=== PATIENT | male | born 1995 | race Caucasian/White ===

== ENCOUNTER 2024-12-05 10:11 | Emergency (ER) | payer BC, SELFPAY ==
[2024-12-05 10:15] VITALS: BP 156/109; PULSE 89; TEMP 36.6; O2SAT 98; BMI 23.1
--- OUTSIDE RECORDS SUMMARY | 2024-12-05 10:17 | XMS_ITS | Clinical Summary ---
Author Organization [facility] Address [address] [place] [address] Care Team Providers Care [employer] Supervisor Name Role Phone Unavailable Primary Care Provider Unavailabl e Allergies Active Allergy Reactions Criticality Noted Date Comments Amoxicillin Trihydrate Rash Low 04/17/2011 Penicillins Rash Low 03/24/2015 Medications No known medications Active Problems Problem Noted Date Diagnosed Date Migraine without status migrainosus, not intract able 03/24/2015 ADD (attention deficit disorder) 03/24/2015 Wart 05/25/2011 Migraines Immunizations Immunization Administration Dates Next Due DTaP 01/07/2002, 9,1997,1996,1997 Hepatitis B 1997,1997,1997 Hib, unspecified 05/16/1998, 8,1997,1996 MMR, PRIORIX, M-M-R II, (age 12m+), SC, 0.5mL 01/07/2002,05/16/1998 Poliovirus, IPOL, (age 6w+), SC/IM, 0.5mL 01/07/2002,08/15/1998,1997,1996 Varicella, VARIVAX, (age 12m +), SC, 0.5mL 01/02/1998 Family History Medical History Relation Name Comments Migraines Father Migraines Mother Relation Name Status Comments Father Alive Mother Alive Social History Tobacco Use Types Packs/Day Years Used Date Smoking Tobacco: Never Smokeless Tobacco: Never Tobacco Cessation:Counseling Given: Yes Alcohol Use Standard Drinks/Week Comments No 0 (1 standard drink = 0.6 oz pur e alcohol) Overall Financial Resource Strain (CARDIA) Answe r Date Recorded How hard is it for you to pa y for the very basics like food, housing, medical care, and heating? Not hard at all 11/27/2021 PHQ-2 Answer Date Recorded PHQ-9 Total Score 0 11/27/2021 Hunger Vital Sign Answer Date Recorded Within the past 12 months, y ou worried that your food would run out before you got the money to buy more. Never true 11/28/19 22 Within the past 12 months, t he food you bought just didn't last and you didn't have money to get more. Never true 11/27/2021 PRAPARE - Transportation Answer Date Re corded In the past 12 months, has l ack of transportation kept you from medical appointments or from getting medications? No 06/2021 In the past 12 months, has l ack of transportation kept you from meetings, work, or from getting things needed for daily living? No 11/27/2021 Sex and Gender Information Value Date Recorded Sex Assigned at Not on file Legal Sex Male 8:48 AM EST Gender Identity Not on file Sexual Orientation Not on file Last Filed Vital Signs Vital Sign Reading Time Taken Comments Blood Pressure 116/66 11/27/2021 5:12 PM EDT Pulse 64 11/27/2021 5:12 PM EDT Temperature 36.4 C (97.6 F) 11/27/2021 5:12 PM EDT Respiratory Rate 16 11/27/2021 5:12 PM EDT Oxygen Saturation 99% 11/27/2021 5:12 PM EDT Inhaled Oxygen Concentration - - Weight 81 kg (178 lb 9.6 oz) 11/27/2021 5:12 PM EDT Height 179.7 cm (5' 10.75 ) 11/27/2021 5:12 PM E DT Body Mass Index 25.09 11/27/2021 5:12 PM EDT Plan of Treatment Health Maintenance Due Date Last Done Comments Varicella vaccine (2 of 2 - 2-dose childhood series) 2001 01/02/1998 DTaP/Tdap/Td vaccine (6 - Tdap) 01/07/2008 01/07/2002, 08/15/1998, 1997, Additional history exists Depression Screen 2009 HIV screen 01/07/2012 Hepatitis C screen 2015 COVID-19 Vaccine ( season) 2024 05/01/2021, 04/10/2021 Flu vaccine (Season Ended) 2025 Hepatitis B vaccine Completed 1997, 1997, 1997 Hib vaccine Completed 05/16/1998, 06/30, 1997, Additional history exists Polio vaccine Completed 01/07/2002, 07/30, 1997, Additional history exists HPV vaccine Aged Out No longer eligi ble based on patient's age to complete this topic Hepatitis A vaccine Aged Out No longe r eligible based on patient's age to complete this topic Meningococcal (ACWY) vaccine Aged Out No longer eligible based on patient's age to complete this topic Meningococcal B vaccine Aged Out No l onger eligible based on patient's age to complete this topic Pneumococcal 0-49 years Vaccine Aged Out No longer eligible based on patient's age to complete this topic Advance Directives Healthcare Agents on File Name Relationship [facility] Marybeth Dumont Other Primary Decision Maker
--- OUTSIDE RECORDS SUMMARY | 2024-12-05 10:17 | XMS_ITS | Clinical Summary ---
Author Organization [facility] Address [address] [place] [address] Care Team Providers Care Quality Rn Name Role Phone Unavailable Primary Care Provider Unavailabl e Allergies Active Allergy Reactions Criticality Noted Date Comments Penicillins Rash 02/04/2012 Medications No known medications Active Problems Problem Noted Date Diagnosed Date Unspecified closed fracture of pelvis 02/25/2012 Social History Tobacco Use Types Packs/Day Years Used Date Smoking Tobacco: Never Assessed Sex and Gender Information Value Date Recorded Sex Assigned at Not on file Legal Sex Male 9:33 AM EST Gender Identity Not on file Sexual Orientation Not on file Plan of Treatment Health Maintenance Due Date Last Done Comments Anxiety Screening 2015 Depression Screening 2015 HIV Screening 2015 Hepatitis C Screening 2015 DTaP,Tdap,Td Vaccine (1 - Tdap) 01/07/2016 Hepatitis B Vaccine (1 of 3 - 19+ 3-dose series) 01/06 Covid-19 Vaccine (1 - 2023- season) 2024 Influenza Vaccine (Season Ended) 2025 Insurance [employer]
--- NOTE | 2024-12-05 10:31 | CT_ITS ---
The [address] [address] Patient Name: FRANCISCO BADILLO MRN: [id number] date: 1995 Sex: M Assigned Patient Location: ER Current Patient Location: ER Accession/Order Number: [id number] Exam Date: 12/05/2024 11:24 Report Date: 12/05/2024 11:38 At the request of: JOURDAN ACOSTA MD Procedure: CT abdomen pelvis wo con CT ABDOMEN AND PELVIS WITHOUT CONTRAST COMPARISON: None CLINICAL DATA: Left lower quadrant pain today. Spiral images were obtained through the abdomen and pelvis without contrast. This CT exam was performed using one or more following dose reduction techniques: Automated exposure control, adjustment of the mA and/or kV according to patient size, or use of iterative reconstruction technique. Limited cuts through the lung bases show no contributory findings. Evaluation of the intra-abdominal organs is slightly limited by the absence of contrast. No calcified gallstones are identified. No intrahepatic masses are seen. The spleen, pancreas and adrenal glands show no acute findings. A 4 mm stone is present at the midpole the right kidney. No hydronephrosis is identified on the right. 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 There is question of a 4-5 mm stone just proximal to the left ureterovesical junction. There is also a calcification proximal to it measuring 3 mm which is in the vicinity of the ureter. A second potential stone is difficult to completely exclude. The abdominal aorta is normal caliber. Small abdominal lymph nodes are present. No ascites is identified. There is a small amount of fluid within the stomach. The small bowel loops are not distended. There is stool at the right colon. Most of the descending colon is underdistended. Slight levoscoliotic curvature and minor degenerative changes are visualized at the spine. Images through the pelvis show normal caliber small bowel loops. No appendiceal inflammation is present though there is an appendicolith. There is air and mild stool at the distal colon. No diverticular disease is seen. The urinary bladder wall is borderline thickened though the urinary bladder is only partially distended. The prostate is top normal in size. No ascites is seen. CT/CT abdomen pelvis wo con IMPRESSION: RIGHT NEPHROLITHIASIS. LEFT DUPLICATION WITH LOWER POLE PELVIECTASIS. PARTIALLY OBSTRUCTING DISTAL LEFT URETERAL STONE(S) ARE NOT EXCLUDED. CORRELATION TO OTHER URINARY SYMPTOMS IS SUGGESTED. UNDER DISTENDED URINARY BLADDER WITH BORDERLINE WALL THICKENING. NO ADDITIONAL ACUTE FINDINGS. Impression dictated by: Sarita Breen M.D. 12/05/2024 11:38 AM Dictation Location: [place] [address] Electronically authenticated by: [id number] Y Date: 12/05/2024 11:38
--- NOTE | 2024-12-05 10:33 | ED.GENADUL1 ---
HPI HPI - General Adult General Chief complaint: Abdominal Pain Stated complaint: L ABDOMINAL PAIN Time Seen by Provider: 12/05/24 10:29 Source: patient and friend Mode of arrival: walk-in Limitations: no limitations History of Present Illness HPI narrative: Patient is a 29-year-old male who is presenting with a chief complaint of acute onset of left flank and left lower quadrant pain. 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 Patient was clammy, several episodes of nausea vomiting. Patient's pain was sudden. Patient has done no recent heavy lifting, twisting or turning. Patient has no history of kidney stone. Patient has no medical history. Patient's had no constipation recently. Patient states he has been trying to urinate, if he has the urge to go but is not able to urinate like he normally does. Patient has no back pain. No chest pain or shortness of breath. No fever. No other acute complaints. Patient was brought down to the ER by administrative staff. Patient was taken into room 5 secondary to significant discomfort, distress secondary to pain. All systems are negative except as noted/marked. All systems reviewed and otherwise negative. Nurses note and vital signs reviewed and patient is not hypoxic. General: The patient appears moderate distress secondary to pain when he initially arrived into the ER, I saw him walk into room 5, holding his left lower quadrant and left flank.. Patient is resting uncomfortably on cart. Patient is not toxic, lethargic, or listless. However when I saw and evaluated the patient, his pain has subsided, was a 5/10. Patient's symptoms improved compared to when he first initially brought to the ER. Skin: Warm, clammy, not diaphoretic, no pallor noted. There is no rash noted. No petechiae, purpura. Head: Normocephalic, atraumatic Eye: Normal conjunctiva, no drainage, EOMI. PERRL Ears, Nose, Mouth, and Throat: oral mucosa is moist. Nares patent. Mouth without vesicles. Cardiovascular: Regular Rate and Rhythm, no murmur, gallop, rub Respiratory: Patient is in no distress, no accessory muscle use, lungs are clear to auscultation, no wheezing, rales or rhonchi Back: non-tender, no CVA tenderness bilaterally to percussion. No CT LS midline pain GI: Patient has mild to moderate left lower quadrant tenderness palpation, mild left flank tenderness to palpation, no CVA tenderness bilateral, no peritoneal signs, otherwise no tenderness to palpation, no masses appreciated. No rebound, guarding, or rigidity noted. No distention Musculoskeletal: Patient has full range of motion of all of the extremities, no motor, sensory, or focal neurological deficits Neurological: A&O x4, normal speech Psychiatric: Cooperative Related Data Previous Rx's ?Medication ?Instructions ?Recorded ketorolac 10 mg tablet 10 mg PO Q8H PRN pain 1 day #10 12/05/24 tabs ondansetron 4 mg disintegrating 4 mg PO Q4H PRN nausea and 12/05/24 tablet vomiting 3 days #6 tabs oxycodone-acetaminophen 5 mg-325 1 tab PO Q4H PRN pain #10 tabs 12/05/24 mg tablet (Percocet) tamsulosin 0.4 mg capsule (Flomax) 0.4 mg PO DAILY 7 days #7 caps 12/05/24 Allergies Allergy/AdvReac Type Severity Reaction Status Date / Time Penicillins Allergy Unknown Unknown Verified 12/05/24 10:15 Opioid HPI Opioid Management Most Recent Opioid Data: Last Pain Scale 0 Today, 12:04 Last MAR Pain Assessment Today, 10:41 PFSH PFSH Social History Little interest or pleasure in doing things: not at all Feeling down, depressed, or hopeless: not at all Exam Constitutional Vital Signs, click to edit/add: Last Vital Signs Temp 99 F 12/05/24 13:51 Pulse 57 L 12/05/24 14:40 Resp 14 12/05/24 14:40 BP 134/89 12/05/24 14:40 Pulse Ox 100 12/05/24 14:40 O2 Del Method Room Air 12/05/24 14:40 Course Vital Signs Vital signs: Vital Signs Temperature 97.9 F 12/05/24 10:15 Pulse Rate 89 12/05/24 10:15 Respiratory Rate 22 H 12/05/24 10:15 Blood Pressure 156/109 H 12/05/24 10:15 Pulse Oximetry 98 12/05/24 10:15 Oxygen Delivery Method Room Air 12/05/24 10:15 Temperature 99 F 12/05/24 13:51 Pulse Rate 57 L 12/05/24 14:40 Respiratory Rate 14 12/05/24 14:40 Blood Pressure 134/89 12/05/24 14:40 Pulse Oximetry 100 12/05/24 14:40 Oxygen Delivery Method Room Air 12/05/24 14:40 Medical Decision Making MDM Narrative Medical decision making narrative: Patient seen and examined: Patient was very uncomfortable. Patient was given IV Toradol, morphine, Zofran, fluids, lab work, urine and CT of the abdomen pelvis will be done secondary to patient's presentation and symptoms. Differential diagnosis includes but is not limited to: Diagnostics and management: Patient will have laboratory studies Relevant laboratory interpretation: Patient has glucose 116, lactic 2.7 Radiological studies: Please see the formal radiological report. Spiral images were obtained through the abdomen and pelvis without contrast. This CT exam was performed using one or more following dose reduction techniques: Automated exposure control, adjustment of the mA and/or kV according to patient size, or use of iterative reconstruction technique. Limited cuts through the lung bases show no contributory findings. Evaluation of the intra-abdominal organs is slightly limited by the absence of contrast. No calcified gallstones are identified. No intrahepatic masses are seen. The spleen, pancreas and adrenal glands show no acute findings. A 4 mm stone is present at the midpole the right kidney. No hydronephrosis is identified on the right. 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 There is question of a 4-5 mm stone just proximal to the left ureterovesical junction. There is also a calcification proximal to it measuring 3 mm which is in the vicinity of the ureter. A second potential stone is difficult to completely exclude. The abdominal aorta is normal caliber. Small abdominal lymph nodes are present. No ascites is identified. There is a small amount of fluid within the stomach. The small bowel loops are not distended. There is stool at the right colon. Most of the descending colon is underdistended. Slight levoscoliotic curvature and minor degenerative changes are visualized at the spine. Images through the pelvis show normal caliber small bowel loops. No appendiceal inflammation is present though there is an appendicolith. There is air and mild stool at the distal colon. No diverticular disease is seen. The urinary bladder wall is borderline thickened though the urinary bladder is only partially distended. The prostate is top normal in size. No ascites is seen. CT/CT abdomen pelvis wo con IMPRESSION: RIGHT NEPHROLITHIASIS. LEFT DUPLICATION WITH LOWER POLE PELVIECTASIS. PARTIALLY OBSTRUCTING DISTAL LEFT URETERAL STONE(S) ARE NOT EXCLUDED. CORRELATION TO OTHER URINARY SYMPTOMS IS SUGGESTED. UNDER DISTENDED URINARY BLADDER WITH BORDERLINE WALL THICKENING. NO ADDITIONAL ACUTE FINDINGS. Reevaluation: Patient's pain did not improve after Toradol, morphine, Zofran, IV fluids. Shared decision making: I discussed with the patient the necessary laboratory findings and radiological findings. Social barriers to healthcare: There are no food insecurities, there is no issue with transportation, there are no insurance barriers. Disposition: I discussed with the patient several at discharge the education, explanation of kidney stones and how to pass the kidney stone. With Caroline Velarde RN at bedside, who is a family friend, lengthy conversation was had at bedside with patient on education on kidney stones, the different medications that are prescribed and why to take them, along with using urine strainer. I also spoke to the urologist on-call, Dr. Paz. He is aware of patient, we discussed patient's CT finding, lab work, urine findings. He stated that his staff will call him this afternoon and inform him of possible surgery in time later this afternoon for the next day or 2. He agreed with sending patient home with the normal medications, urine strainers, increase fluids. I gave this information to patient. Patient is aware that I spoken to urologist. We have sent patient home with urine strainers. Patient did receive a phone call from the urology office and has a procedure scheduled at 11:00 tomorrow. This occurred while I was discharging the patient. Patient is sent home with Percocet, Zofran, Toradol, and Flomax. A lot of education was done at bedside of medications and how to treat kidney stones at home. Patient will see if additional education tomorrow from his urologist. Patient is concerned because he is in a wedding this Thursday in [place]. A lot of education was done symptoms, medication, treatment that will be done, discussing patient's events this weekend, discussing intercourse and erection, and educating him what is to expect this week whether or whether or not he has a stent in with his pain medications. Patient understands not to take narcotics with alcohol. No question at discharge. Patient had a lengthy stay in the ER secondary to patient volume, and I was the only provider in the ER today. [facility] were given to the patient. Lab Data Lab results reviewed: Yes I reviewed the patient's lab results Labs: Lab Results 12/05/24 12/05/24 12/05/24 Range/Units 10:25 12:55 13:42 WBC 6.0 (4.0-11.0) 10^3/uL RBC 5.46 (4.70-6.10) 10^6/uL Hgb 16.8 (14.0-18.0) g/dL Hct 47.6 (42.0-54.0) % MCV 87.2 (80.0-94.0) fL MCH 30.8 (25.9-34.0) pg MCHC 35.3 H (29.9-35.2) g/dL RDW 11.9 (11.0-15.0) % Plt Count 296 (150-450) 10^3/uL MPV 9.9 (9.5-13.5) fL Neut % (Auto) 53.7 (43.0-75.0) % Lymph % (Auto) 34.8 (20.5-60.0) % [place] % (Auto) 9.4 (1.7-12.0) % Eos % (Auto) 1.0 (0.9-7.0) % Baso % (Auto) 0.8 (0.2-2.0) % Neut # (Auto) 3.2 (1.4-6.5) 10^3/uL Lymph # (Auto) 2.1 (1.2-3.8) 10^3/uL [place] # (Auto) 0.6 (0.3-0.8) 10^3/uL Eos # (Auto) 0.1 (0.0-0.7) 10^3/uL Baso # (Auto) 0.1 (0.0-0.1) 10^3/uL Abs Immat Gran (auto) 0.02 (0.00-0.03) 10^3/uL Imm/Tot Granulo (auto) 0.3 (0.0-0.5) % Sodium 140 (136-145) mmol/L Potassium 3.6 (3.5-5.1) mmol/L Chloride 101 (98-107) mmol/L Carbon Dioxide 27.3 (21.0-32.0) mmol/L Anion Gap 15.3 BUN 12.0 (7.0-18.0) mg/dL Creatinine 1.23 (0.70-1.30) mg/dL Est GFR ( Amer) >60 (>=60 mL/min/1.73m^2) Est GFR (Non-Af Amer) >60 (>=60 mL/min/1.73m^2) BUN/Creatinine Ratio 9.8 Glucose 116 H (74-106) mg/dL Lactate 2.7 H* 0.8 (0.4-2.0) mmol/L Calcium 9.9 (8.5-10.1) mg/dL Total Bilirubin 0.8 (0.2-1.0) mg/dL AST 19 (15-37) U/L ALT 33 (16-63) U/L Alkaline Phosphatase 69 (46-116) U/L Total Protein 8.5 H (6.4-8.2) g/dL Albumin 4.5 (3.4-5.0) g/dL Globulin 4.0 g/dL Albumin/Globulin Ratio 1.1 Lipase 19.0 (16.0-77.0) U/L Urine Color Lt. yellow (YELLOW) Urine Clarity Clear (CLEAR) Urine pH 7.0 (5.0-9.0) Ur Specific [place] 1.015 (1.005-1.025) Urine Protein Negative (NEG/TRACE) mg/dL Urine Glucose (UA) Negative (NEGATIVE) mg/dL Urine Ketones Negative (NEGATIVE) mg/dL Urine Occult Blood Small A (NEGATIVE) Urine Nitrite Negative (NEGATIVE) Urine Bilirubin Negative (NEGATIVE) Urine Urobilinogen 0.2 (0.2-1.0) EU/dL Ur Leukocyte Esterase Negative (NEGATIVE) Urine RBC 5-10 A (0-2) #/HPF Urine WBC None seen (NONE SEEN) #/HPF Ur Squamous Epith Cells None seen (NONE/RARE) #/LPF Urine Crystals None seen (None Seen) #/HPF Urine Bacteria None seen (NONE SEEN) #/HPF Urine Casts None seen (NONE SEEN) #/LPF Urine Mucus None seen (NONE SEEN) Ur Culture Indicated? No Discharge Plan Discharge Chief Complaint: Abdominal Pain Clinical Impression: Calculus of left kidney, Renal colic on left side Patient Disposition: Home, Self-Care Time of Disposition Decision: 14:26 Condition: Fair Prescriptions / Home Meds: New ketorolac 10 mg tablet 10 mg PO Q8H PRN (Reason: pain) 1 Days Qty: 10 0RF oxycodone-acetaminophen [Percocet] 5-325 mg tablet 1 tab PO Q4H PRN (Reason: pain) Qty: 10 0RF tamsulosin [Flomax] 0.4 mg capsule 0.4 mg PO DAILY 7 Days Qty: 7 0RF ondansetron 4 mg tablet,disintegrating 4 mg PO Q4H PRN (Reason: nausea and vomiting) 3 Days Qty: 6 0RF Print Language: Croatian Instructions: Kidney Stones (ED), Renal Colic (ED), How to Strain Your Urine (ED), Nephrostomy Tube Insertion (DC) Additional Instructions: Increase fluids at home, up to 1 gallon of fluid a day to help produce more urine to help pass kidney stones. Use Toradol as needed for mild to moderate pain. Use Percocet as needed for severe pain Use Zofran as needed for nausea and vomiting Use Flomax daily. Take Flomax daily to help with passage of stones. Return back to the ER for intractable abdominal pain, nausea, vomiting, or any other acute concerns. Follow-up with urologist, their office should be calling you today or tomorrow to follow-up in the office or possibly discuss surgery if indicated. Education on a stent was given to you for educational purposes only. I am not sure if he will have the stents or not. Referrals: Physician,Non-Staff, [Primary Care Provider] - 1 week Jeff Paz MD [Physician, Urology] - 1 week Discharge Date/Time: 12/05/24 14:42
[2024-12-05 10:37] LABS: Basophils Absolute Auto 0.1 10^3/uL (0.0-0.1); Basophils Percent Auto 0.8 % (0.2-2.0); Eosinophils Absolute Auto 0.1 10^3/uL (0.0-0.7); Hematocrit 47.6 % (42.0-54.0); Hemoglobin 16.8 g/dL (14.0-18.0); Immature Granulocytes Abs Auto 0.02 10^3/uL (0.00-0.03); Immature Granulocytes Pct Auto 0.3 % (0.0-0.5); Lymphocytes Absolute Auto 2.1 10^3/uL (1.2-3.8); Lymphocytes Percent Auto 34.8 % (20.5-60.0); Mean Corpuscular HGB Conc 35.3 g/dL (29.9-35.2); Mean Corpuscular Hemoglobin 30.8 pg (25.9-34.0); Mean Corpuscular Volume 87.2 fL (80.0-94.0); Mean Platelet Volume 9.9 fL (9.5-13.5); Monocytes Absolute Auto 0.6 10^3/uL (0.3-0.8); Monocytes Percent Auto 9.4 % (1.7-12.0); Neutrophils Absolute Auto 3.2 10^3/uL (1.4-6.5); Neutrophils Percent Auto 53.7 % (43.0-75.0); Platelet Count 296 10^3/uL (150-450); Red Blood Count 5.46 10^6/uL (4.70-6.10); Red Cell Distribution Width 11.9 % (11.0-15.0)
[2024-12-05] MEDS: MORPHINE SULFATE 4 MG/ML VIAL IV (10:41)
[2024-12-05] MEDS: ONDANSETRON PF 4 MG/2 ML VIAL IV (10:41)
[2024-12-05] MEDS: 0.9 % SODIUM CHLORIDE 1,000 ML 999 ML IV (10:41)
[2024-12-05] MEDS: KETOROLAC TROMETHAMINE 30 MG/ML VIAL 15 MG IVP (10:41)
[2024-12-05 11:12] LABS: Alanine Aminotransferase 33 U/L (16-63); Albumin Globulin Ratio 1.1; Albumin Level 4.5 g/dL (3.4-5.0); Alkaline Phosphatase 69 U/L (46-116); Anion Gap 15.3; Aspartate Amino Transferase 19 U/L (15-37); BUN Creatinine Ratio 9.8; Bilirubin Total 0.8 mg/dL (0.2-1.0); Calcium 9.9 mg/dL (8.5-10.1); Carbon Dioxide 27.3 mmol/L (21.0-32.0); Chloride 101 mmol/L (98-107); Estimated GFR (African America >60 (>=60 mL/min/1.73m^2); Estimated GFR (Non-African Ame >60 (>=60 mL/min/1.73m^2); Glucose 116 mg/dL (74-106); Potassium 3.6 mmol/L (3.5-5.1); Sodium 140 mmol/L (136-145); Total Protein 8.5 g/dL (6.4-8.2)
[2024-12-05 11:16] LABS: Lactate/Lactic Acid 2.7 mmol/L (0.4-2.0)
[2024-12-05 12:28] VITALS: BP 115/73; PULSE 66; O2SAT 99
[2024-12-05 13:05] LABS: Bilirubin Urine NEGATIVE (NEGATIVE); Blood Urine SMALL (NEGATIVE); Clarity Urine CLEAR (CLEAR); Color Urine LT. YELLOW (YELLOW); Glucose Urine UA NEGATIVE (NEGATIVE); Ketones Urine NEGATIVE (NEGATIVE); Leukocyte Esterase Urine NEGATIVE (NEGATIVE); Nitrite Urine NEGATIVE (NEGATIVE); Protein Urine NEGATIVE (NEG/TRACE); Specific Gravity Urine 1.015 (1.005-1.025); Urobilinogen Urine 0.2 EU/dL (0.2-1.0)
[2024-12-05 13:11] LABS: Bacteria Urine NONE SEEN #/HPF (NONE SEEN); Cast Seen? NONE SEEN #/LPF (NONE SEEN); Crystals Seen? None Seen #/HPF (None Seen); Mucus Urine NONE SEEN (NONE SEEN); Squamous Epithelial Cell Urine NONE SEEN #/LPF (NONE/RARE); Urine Culture Indicated NO; WBC Urine NONE SEEN #/HPF (NONE SEEN)
[2024-12-05] MEDS: ONDANSETRON 4 MG RAPDIS TABLET SL (13:44)
[2024-12-05] MEDS: HYDROCODONE/ACET 5-325 MG TABLET 1 TAB PO (13:44)
[2024-12-05 13:51] VITALS: BP 145/99; PULSE 83; TEMP 37.2; O2SAT 100
[2024-12-05 14:09] LABS: Lactate/Lactic Acid 0.8 mmol/L (0.4-2.0)
[2024-12-05 14:40] VITALS: BP 134/89; PULSE 57; O2SAT 100
== END 2024-12-05 14:42 | disposition home or self-care (01) ==
PROVIDERS: Emergency Provider Emergency Medicine
DX: N20.0 Calculus of kidney (principal)
CPT/HCPCS: 36415; 74176; 80053; 81001; 83605; 83690; 85025; 96361; 96374; 96375; 99285; J1885; J2270; J2405; Q0162